=== PATIENT | female | born 1960 | race Caucasian/White ===

== ENCOUNTER 2020-08-12 07:24 | Emergency (ER) | payer OTHER ==
[~2020-08-12 07:24] MED LIST: ALBUTEROL2.5 MG/3 M INH; ASPIRIN EC81 MG PO; CLARITIN10 MG PO; COLACE 100MG C100 MG PO; EPIPEN 2-P0.3 MG/0.3 IM; EPIPEN 2-P0.3 MG/0.3 INJ; FENOFIBRATE145 MG PO; FLOVENT DISKUS50 MCG; HYDROCHLOROTHIA25 MG PO; IBUPROFEN800 MG PO; K-DUR TAB 10 M10 MEQ PO; KLONOPIN0.5 MG PO; LIPITOR TAB 2020 MG PO; LOPRESSOR 25 MG25 MG PO; LORTAB 7.5-3251 EACH PO; PRILOSEC OTC20 MG PO; PRINIVIL20 MG PO; PROTONIX 40 MG40 M1 PO; SINGULAIR10 MG PO; TESSALON PERLE100 MG PO; VITAMIN D3125 MCG PO; VITAMIN D5000 UNIT PO; XYLOCAINE 2% JE30 ML TOP; ZANAFLEX2 MG PO; ZANAFLEX4 MG PO; ZANTAC300 MG PO; ZESTRIL40 MG PO; ZOCOR40 MG PO
[2020-08-12 08:18] LABS: HEMOGLOBIN 14.5 gm/dl (12.3-15.3); RED BLOOD COUNT 4.62 M/UL (4.00-5.10); WHITE BLOOD COUNT 7.6 K/UL (4.5-11.0)
[2020-08-12 08:43] LABS: BUN/CREATININE RATIO 14 (0-10)
[2020-08-12] MEDS ORDERED: ECOTRIN81 MG PO (10:59)
== END 2020-08-12 11:18 | disposition home or self-care (01) ==
LOC: ER1 07:24
PROVIDERS: Family Medicine
DX: R07.9 Chest pain, unspecified (principal); I10 Essential (primary) hypertension; F17.200 Nicotine dependence, unspecified, uncomplicated; Z88.0 Allergy status to penicillin; Z88.1 Allergy status to other antibiotic agents
CPT/HCPCS: 71046; 80053; 81001; 82550; 82553; 82962; 83874; 84484; 85025; 85610; 93005; 99285

== ENCOUNTER → 2020-09-16 | Outpatient (CLI) | payer OTHER ==
[~2020-09-16] MED LIST changes: +ECOTRIN81 MG PO
== END ==
LOC: ECHO 12:43
DX: R07.9 Chest pain, unspecified (principal)
CPT/HCPCS: ECHO; 93306

== ENCOUNTER 2021-06-04 13:31 | Observation (INO) | payer OTHER ==
[~2021-06-04] VITALS: Ht 157.5 cm; Wt 65.8 kg
[~2021-06-04 13:31] MED LIST changes: -LIPITOR TAB 2020 MG PO; -ZANAFLEX4 MG PO
[2021-06-04 14:02] LABS: HEMOGLOBIN 15.1 gm/dl (12.3-15.3); RED BLOOD COUNT 4.72 M/UL (4.00-5.10); WHITE BLOOD COUNT 8.8 K/UL (4.5-11.0)
[2021-06-04 14:29] LABS: BUN/CREATININE RATIO 18 (0-10)
[2021-06-04] MEDS ORDERED: TIZANIDINE HCL2 MG PO (15:49)
[2021-06-04] MEDS ORDERED: KLONOPIN0.5 MG PO (17:00)
[2021-06-04] MEDS ORDERED: LIPITOR40 MG PO (17:04)
[2021-06-04] MEDS ORDERED: TYLENOL EXTRA500 MG PO (18:26)
[2021-06-04] MEDS ORDERED: PROAIR DIGIHAL90 MCG INH (18:27)
[2021-06-05 02:38] LABS: HEMOGLOBIN 13.6 gm/dl (12.3-15.3); RED BLOOD COUNT 4.29 M/UL (4.00-5.10); WHITE BLOOD COUNT 9.6 K/UL (4.5-11.0)
[2021-06-05 03:46] LABS: BUN/CREATININE RATIO 23 (0-10)
--- NOTE | 2021-06-05 19:26 | NUR ---
patient leaving with at discharge 1925 on 06/05/21
== END 2021-06-05 19:25 | disposition home or self-care (01) ==
LOC: ER1 13:31 → CDU 17:02 → MED SURG 4 18:40
PROVIDERS: Emergency Medicine; ADMIT Internal Medicine
DX: I25.119 Atherosclerotic heart disease of native coronary artery with unspecified angina pectoris (principal); E78.5 Hyperlipidemia, unspecified; E03.9 Hypothyroidism, unspecified; E55.9 Vitamin D deficiency, unspecified; F17.210 Nicotine dependence, cigarettes, uncomplicated; F41.9 Anxiety disorder, unspecified; J30.2 Other seasonal allergic rhinitis; R94.6 Abnormal results of thyroid function studies; Z79.82 Long term (current) use of aspirin; Z79.899 Other long term (current) drug therapy; Z88.0 Allergy status to penicillin; Z88.1 Allergy status to other antibiotic agents; Z20.822 Contact with and (suspected) exposure to COVID-19; Z86.73 Personal history of transient ischemic attack (TIA), and cerebral infarction without residual deficits; Z90.89 Acquired absence of other organs; I08.1 Rheumatic disorders of both mitral and tricuspid valves
CPT/HCPCS: ECHO; 36415; 71045; 78452; 80053; 80061; 82550; 82553; 83874; 84439; 84443; 84484; 85025; 85379; 93005; 93017; 93306; A9502; G0378; J2785; U0002

== ENCOUNTER → 2021-07-20 | Outpatient (CLI) | payer OTHER ==
[~2021-07-20] MED LIST changes: +LIPITOR40 MG PO; +PROAIR DIGIHAL90 MCG INH; +TIZANIDINE HCL2 MG PO; +TYLENOL EXTRA500 MG PO
== END ==
LOC: MAMO 15:13
DX: Z12.31 Encounter for screening mammogram for malignant neoplasm of breast (principal)
CPT/HCPCS: 77063; 77067

== ENCOUNTER → 2021-08-25 | Outpatient (CLI) | payer OTHER | LOC: EXRD 14:34 | DX: N20.0 Calculus of kidney (principal); R10.9 Unspecified abdominal pain; M54.50 Low back pain, unspecified | CPT/HCPCS: 74018 ==

== ENCOUNTER → 2021-09-17 | Outpatient (CLI) | payer OTHER | LOC: KOH-I 08:29 | DX: R10.9 Unspecified abdominal pain (principal); D35.02 Benign neoplasm of left adrenal gland; D35.01 Benign neoplasm of right adrenal gland | CPT/HCPCS: 74176 ==

== ENCOUNTER 2021-10-03 11:41 | Emergency (ER) | payer OTHER ==
[2021-10-03 12:14] LABS: HEMOGLOBIN 15.2 gm/dl (12.3-15.3); RED BLOOD COUNT 4.84 M/UL (4.00-5.10)
[2021-10-03 12:42] LABS: BUN/CREATININE RATIO 17 (0-10)
== END 2021-10-03 14:08 | disposition home or self-care (01) ==
LOC: ER1 11:41
PROVIDERS: Nurse Practitioner; Physician Assistant
DX: M79.604 Pain in right leg (principal); M79.605 Pain in left leg; R42 Dizziness and giddiness; E78.5 Hyperlipidemia, unspecified; F17.210 Nicotine dependence, cigarettes, uncomplicated; Z88.0 Allergy status to penicillin; Z88.1 Allergy status to other antibiotic agents
CPT/HCPCS: 80053; 80307; 81001; 82607; 82746; 84439; 84443; 85025; 93005; 99284

== ENCOUNTER → 2021-11-03 | Outpatient (CLI) | payer OTHER | LOC: KOH-I 14:18 | DX: E03.8 Other specified hypothyroidism (principal) | CPT/HCPCS: 76536 ==

== ENCOUNTER 2021-11-18 09:47 | Emergency (ER) | payer OTHER ==
[2021-11-18 12:28] LABS: HEMOGLOBIN 14.2 gm/dl (12.3-15.3); RED BLOOD COUNT 4.53 M/UL (4.00-5.10); WHITE BLOOD COUNT 8.3 K/UL (4.5-11.0)
[2021-11-18 12:54] LABS: BUN/CREATININE RATIO 16 (0-10)
[2021-11-18] MEDS ORDERED: ANTIVERT 12.512.5 MG PO (15:18)
== END 2021-11-18 15:25 | disposition home or self-care (01) ==
LOC: ER1 09:47
PROVIDERS: Nurse Practitioner
DX: R42 Dizziness and giddiness (principal); Z20.822 Contact with and (suspected) exposure to COVID-19; F17.210 Nicotine dependence, cigarettes, uncomplicated; Z88.0 Allergy status to penicillin; Z88.1 Allergy status to other antibiotic agents; Z79.82 Long term (current) use of aspirin; Z79.899 Other long term (current) drug therapy
CPT/HCPCS: 0240U; 70450; 71045; 80053; 80307; 81001; 82550; 82553; 83735; 84100; 84484; 85025; 93005; 99285

== ENCOUNTER → 2021-12-07 | Outpatient (CLI) | payer OTHER ==
[~2021-12-07] MED LIST changes: +ANTIVERT 12.512.5 MG PO
== END ==
LOC: EXRD 11:20
DX: R42 Dizziness and giddiness (principal)
CPT/HCPCS: 93880

== ENCOUNTER → 2021-12-11 | Outpatient (CLI) | payer OTHER | LOC: RAD 12:21 | DX: M54.50 Low back pain, unspecified (principal); G89.29 Other chronic pain; M25.552 Pain in left hip | CPT/HCPCS: 72110; 73502 ==

== ENCOUNTER → 2021-12-29 | Outpatient (CLI) | payer OTHER | LOC: KOH-I 13:47 | DX: M54.50 Low back pain, unspecified (principal); G89.29 Other chronic pain | CPT/HCPCS: 71271 ==

== ENCOUNTER → 2022-01-11 | Outpatient (CLI) | payer OTHER | LOC: HEART 5 14:56 | DX: J44.9 Chronic obstructive pulmonary disease, unspecified (principal) | CPT/HCPCS: 94010 ==